=== PATIENT | female | born 1970 | race Two or more races ===

== ENCOUNTER 2020-06-07 19:30 | Emergency (ER) | payer MEDICAID, OTHER ==
[~2020-06-07] VITALS: Ht 180.3 cm; Wt 120.2 kg
[2020-06-07 20:41] VITALS: BP 151/100
== END 2020-06-07 23:25 | disposition home or self-care (01) ==
LOC: ER 19:30
DX: J45.909 Unspecified asthma, uncomplicated (principal); Z20.828 Contact with and (suspected) exposure to other viral communicable diseases
CPT/HCPCS: 36415; 71045; 87070; 87426; 87880; 99284; U0003